=== PATIENT | male | born 1955 | race Caucasian/White ===

== ENCOUNTER 2017-07-18 17:07 | Emergency (ER) | payer OTHER ==
[~2017-07-18] VITALS: Ht 182.9 cm; Wt 87.2 kg
[~2017-07-18 17:07] MED LIST: ADULT LOW DOSE81 M1 PO; AMBIEN CR12.5 MG PO; Augmentin PO; BACLOFEN10 MG PO; BACLOFEN20 MG PO; CELEBREX200 MG PO; COLACE100 MG PO; CRESTOR20 MG PO; DESYREL100 MG PO; Desyrel PO; LAMICTAL200 MG PO; LAMOTRIGINE200 MG PO; LORAZEPAM0.5 MG PO; LYRICA100 MG PO; LaMICtal PO; MIRTAZAPINE30 MG PO; NEURONTIN300 MG PO; Neurontin PO; OMEPRAZOLE20 M3 PO; OMEPRAZOLE20 MG PO; OXYCODONE HCL5 MG PO; OXYCONTIN15 MG PO; PERCOCET 5/31 TABLET PO; PLAVIX75 MG PO; PRILOSEC20 MG PO; Percocet 5/325,Endoc PO; REQUIP0.5 MG PO; ROPINIROLE HCL1 MG PO; Requip PO; SENNA8.6 MG PO; SERTRALINE HCL100 MG PO; TRAZODONE HCL50 MG PO; ULTRAM ER100 MG PO; Vitamin B-12 PO
[2017-07-18 18:10] VITALS: BP 178/108
== END 2017-07-18 18:11 | disposition home or self-care (01) ==
LOC: EME 17:07
DX: S40.012A Contusion of left shoulder, initial encounter (principal); S40.022A Contusion of left upper arm, initial encounter; W18.39XA Other fall on same level, initial encounter; Y93.01 Activity, walking, marching and hiking; Y92.481 Parking lot as the place of occurrence of the external cause; I69.993 Ataxia following unspecified cerebrovascular disease; E78.5 Hyperlipidemia, unspecified; Z85.47 Personal history of malignant neoplasm of testis; Z79.02 Long term (current) use of antithrombotics/antiplatelets; F17.200 Nicotine dependence, unspecified, uncomplicated
CPT/HCPCS: 73030; 73060; 99281; 99284

== ENCOUNTER 2017-10-27 13:24 | Inpatient (IN) | payer OTHER ==
[~2017-10-27] VITALS: Ht 185.4 cm; Wt 87.4 kg
[2017-10-27 14:17] LABS: HEMATOCRIT 39.6 % (38.0-50.0); HEMOGLOBIN 13.6 G/DL (12.5-16.6); MCH 30.1 PG (29.0-34.0); MCHC 34.3 G/DL (30.0-36.0); MCV 87.6 FL (86-99); PLATELET COUNT 207 K/uL (156-360); RBC DIS.WIDTH-CV 13.2 % (11.8-14.6); RBC DIS.WIDTH-SD 42.7 % (39-53); RED BLOOD COUNT 4.52 M/uL (4.00-5.50); WHITE BLOOD COUNT 5.8 K/uL (4.1-10.2)
[2017-10-27 14:35] LABS: CHLORIDE 111 mEq/L (99-109); POTASSIUM 3.4 mEq/L (3.7-5.4); SODIUM 142 mEq/L (136-147)
[2017-10-27 14:36] LABS: GLUCOSE 97 mg/dL (70-99)
[2017-10-27 14:40] LABS: CREATININE 1.2 mg/dL (0.6-1.3); GFR ESTIMATE (CALCULATED) > 59 mL/min/ (58.99-99999)
[2017-10-27 14:41] LABS: UREA NITROGEN (BUN) 13 mg/dL (9-23)
[2017-10-27] MEDS ORDERED: ZOLOFT100 MG PO (15:53)
[2017-10-27] MEDS ORDERED: DESYREL100 MG PO (15:54)
[2017-10-27] MEDS ORDERED: LIPITOR40 MG PO (15:54)
[2017-10-27] MEDS ORDERED: ADVIL100 MG PO (15:55)
[2017-10-27 18:48] VITALS: BP 170/100
[2017-10-27 22:57] VITALS: BP 111/78
[2017-10-27 23:00] VITALS: BP 111/78
[2017-10-28 05:08] VITALS: BP 109/64
[2017-10-28 06:35] LABS: HEMATOCRIT 32.1 % (38.0-50.0); MCHC 33.3 G/DL (30.0-36.0); MCV 89.9 FL (86-99); PLATELET COUNT 242 K/uL (156-360); RBC DIS.WIDTH-CV 13.6 % (11.8-14.6); RBC DIS.WIDTH-SD 44.6 % (39-53); WHITE BLOOD COUNT 12.2 K/uL (4.1-10.2)
[2017-10-28 06:36] LABS: HEMOGLOBIN 10.7 G/DL (12.5-16.6); RED BLOOD COUNT 3.57 M/uL (4.00-5.50)
[2017-10-28 06:59] LABS: ALBUMIN 3.5 G/DL (3.2-4.8); ALKALINE PHOSPHATASE 51 IU/L (3-129); ALT (GPT) 10 IU/L (3-49); AST (GOT) 14 IU/L (2-34); CHLORIDE 111 MEQ/L (99-109); CREATININE 1.3 MG/DL (0.6-1.3); GFR ESTIMATE (CALCULATED) > 59 mL/min/ (58.99-99999); GLUCOSE 126 mg/dL (70-99); POTASSIUM 3.7 MEQ/L (3.7-5.4); SODIUM 143 MEQ/L (136-147); TOTAL BILIRUBIN 0.4 MG/DL (0.0-1.0); TOTAL PROTEIN 5.2 G/DL (6.4-8.3); UREA NITROGEN (BUN) 14 mg/dL (9-23)
[2017-10-28 08:18] VITALS: BP 114/65
[2017-10-28 11:27] VITALS: BP 106/68
[2017-10-28 16:29] VITALS: BP 106/64
[2017-10-28 19:32] VITALS: BP 152/67
[2017-10-28 23:44] VITALS: BP 102/59
[2017-10-29 03:29] VITALS: BP 144/74
[2017-10-29 08:21] LABS: HEMATOCRIT 25.3 % (38.0-50.0); MCH 29.8 PG (29.0-34.0); MCHC 33.2 G/DL (30.0-36.0); MCV 89.7 FL (86-99); PLATELET COUNT 170 K/uL (156-360); RBC DIS.WIDTH-CV 13.5 % (11.8-14.6); RBC DIS.WIDTH-SD 44.7 % (39-53); WHITE BLOOD COUNT 8.4 K/uL (4.1-10.2)
[2017-10-29 08:28] LABS: CHLORIDE 112 MEQ/L (99-109); CREATININE 1.4 MG/DL (0.6-1.3); GFR ESTIMATE (CALCULATED) 54 mL/min/ (58.99-99999); GLUCOSE 116 mg/dL (70-99); HEMOGLOBIN 8.4 G/DL (12.5-16.6); POTASSIUM 3.4 MEQ/L (3.7-5.4); RED BLOOD COUNT 2.82 M/uL (4.00-5.50); SODIUM 140 MEQ/L (136-147); UREA NITROGEN (BUN) 19 mg/dL (9-23)
[2017-10-29 16:10] VITALS: BP 102/58
[2017-10-29 19:00] VITALS: BP 102/63
[2017-10-30] VITALS (7 sets, daily range): BP systolic 106–169; BP diastolic 62–80
[2017-10-30 07:08] LABS: HEMOGLOBIN 8.4 G/DL (12.5-16.6); MCH 29.4 PG (29.0-34.0); MCHC 32.3 G/DL (30.0-36.0); MCV 90.9 FL (86-99); PLATELET COUNT 197 K/uL (156-360); RBC DIS.WIDTH-CV 13.7 % (11.8-14.6); RBC DIS.WIDTH-SD 45.6 % (39-53); RED BLOOD COUNT 2.86 M/uL (4.00-5.50); WHITE BLOOD COUNT 9.1 K/uL (4.1-10.2)
[2017-10-30 07:49] LABS: CHLORIDE 108 MEQ/L (99-109); CREATININE 1.4 MG/DL (0.6-1.3); GFR ESTIMATE (CALCULATED) 54 mL/min/ (58.99-99999); GLUCOSE 108 mg/dL (70-99); POTASSIUM 3.6 MEQ/L (3.7-5.4); SODIUM 142 MEQ/L (136-147); UREA NITROGEN (BUN) 20 mg/dL (9-23)
[2017-10-31] VITALS (13 sets, daily range): BP systolic 133–177; BP diastolic 79–103
[2017-10-31 06:24] LABS: BASOPHIL (%) 0.8 % (0-1); BASOPHIL COUNT 0.1 K/uL (0-0.1); EOSINOPHIL (%) 3.2 % (0-5); EOSINOPHIL COUNT 0.2 K/uL (0-0.3); HEMATOCRIT 22.1 % (38.0-50.0); HEMOGLOBIN 7.3 G/DL (12.5-16.6); IMMATURE GRANULOCYTE (%) 0.7 % (0.0-0.7); LYMPHOCYTE (%) 25.9 % (15-42); LYMPHOCYTE COUNT 1.6 K/uL (1.0-2.8); MCH 30.2 PG (29.0-34.0); MCV 91.3 FL (86-99); MONOCYTE (%) 8.3 % (3-12); MONOCYTE COUNT 0.5 K/uL (0-0.8); NEUTROPHIL (%) 61.1 % (45-76); NEUTROPHIL COUNT 3.7 K/uL (1.8-6.4); PLATELET COUNT 189 K/uL (156-360); RBC DIS.WIDTH-CV 13.5 % (11.8-14.6); RBC DIS.WIDTH-SD 45.1 % (39-53); RED BLOOD COUNT 2.42 M/uL (4.00-5.50)
[2017-10-31 06:50] LABS: CHLORIDE 112 MEQ/L (99-109); CREATININE 1.2 MG/DL (0.6-1.3); GFR ESTIMATE (CALCULATED) > 59 mL/min/ (58.99-99999); GLUCOSE 103 mg/dL (70-99); POTASSIUM 4.1 MEQ/L (3.7-5.4); SODIUM 143 MEQ/L (136-147); UREA NITROGEN (BUN) 17 mg/dL (9-23)
[2017-11-01 00:07] VITALS: BP 142/84
[2017-11-01 00:57] VITALS: BP 186/104
[2017-11-01 01:06] LABS: HEMATOCRIT 28.2 % (38.0-50.0); HEMOGLOBIN 9.7 G/DL (12.5-16.6); MCV 87.6 FL (86-99)
[2017-11-01 01:50] VITALS: BP 166/84
[2017-11-01 04:27] VITALS: BP 182/84
[2017-11-01 05:33] LABS: HEMATOCRIT 26.8 % (38.0-50.0); MCH 29.1 PG (29.0-34.0); MCHC 33.6 G/DL (30.0-36.0); MCV 86.7 FL (86-99); PLATELET COUNT 211 K/uL (156-360); RBC DIS.WIDTH-CV 13.8 % (11.8-14.6); RBC DIS.WIDTH-SD 43.5 % (39-53); WHITE BLOOD COUNT 6.5 K/uL (4.1-10.2)
[2017-11-01 05:34] LABS: RED BLOOD COUNT 3.09 M/uL (4.00-5.50)
[2017-11-01 08:30] VITALS: BP 151/98
[2017-11-01 12:25] VITALS: BP 152/87
[2017-11-01] MEDS ORDERED: AMLODIPINE BESYL5 MG PO (13:05)
[2017-11-01] MEDS ORDERED: OXYCODONE HCL5 MG PO (13:10)
[2017-11-01] MEDS ORDERED: LOVENOX40 MG/0.4 SC (13:12)
[2017-11-01] MEDS ORDERED: SENNA-DOCUSATE1 EAC1 PO (13:12)
== END 2017-11-01 17:38 | disposition home or self-care (01) | DRG 481 ==
LOC: EME 13:24 → 3EAST 16:04 → EDOF 16:04 → ENRESERV 16:06 → 3EAST 17:45
PROVIDERS: Internal Medicine; Orthopaedic Surgery; Physician Assistant; Student in an Organized Health Care Education/Training Program
PROC: 0QS736Z Reposition Left Upper Femur with Intramedullary Internal Fixation Device, Percutaneous Approach (ICD-10-PCS; principal; 2017-10-27)
PROC: 30233N1 Transfusion of Nonautologous Red Blood Cells into Peripheral Vein, Percutaneous Approach (ICD-10-PCS; 2017-11-01)
DX: S72.142A Displaced intertrochanteric fracture of left femur, initial encounter for closed fracture (principal); R26.9 Unspecified abnormalities of gait and mobility; W01.0XXA Fall on same level from slipping, tripping and stumbling without subsequent striking against object, initial encounter; F32.9 Major depressive disorder, single episode, unspecified; G40.909 Epilepsy, unspecified, not intractable, without status epilepticus; I10 Essential (primary) hypertension; F41.9 Anxiety disorder, unspecified; N17.9 Acute kidney failure, unspecified; D62 Acute posthemorrhagic anemia; J32.0 Chronic maxillary sinusitis; E78.5 Hyperlipidemia, unspecified; E87.6 Hypokalemia; F17.200 Nicotine dependence, unspecified, uncomplicated; Z53.20 Procedure and treatment not carried out because of patient's decision for unspecified reasons; I69.354 Hemiplegia and hemiparesis following cerebral infarction affecting left non-dominant side; Z87.891 Personal history of nicotine dependence; Z91.81 History of falling; Y92.009 Unspecified place in unspecified non-institutional (private) residence as the place of occurrence of the external cause; Z79.02 Long term (current) use of antithrombotics/antiplatelets; Z79.899 Other long term (current) drug therapy
CPT/HCPCS: 70450; 71045; 73502; 73552; 76000; 80048; 80053; 81003; 82728; 85014; 85018; 85025; 85027; 86850; 86900; 86901; 86920; 93005; 94640; 97530 GO; 99281; 99285; C1713; C1755; J0330; J0690; J1100; J1170; J1644; J2250; J2270; J2405; J7030; P9016; S0020